=== PATIENT | female | born 1990 ===

== ENCOUNTER → 2022-11-19 | Outpatient (CLI) | payer BC | END | disposition home or self-care (01) | LOC: LAB 14:50 → LAB SHORT 14:50 | DX: O09.893 Supervision of other high risk pregnancies, third trimester (principal) | CPT/HCPCS: 87081; 87150 ==

== ENCOUNTER 2022-12-18 22:20 | Inpatient (IN) | payer BC ==
[~2022-12-18] VITALS: Ht 175.3 cm; Wt 120.9 kg
[2022-12-19 00:11] LABS: BASOPHILS ABSOLUTE AUTO 0.07 K/mm3 (0.00-0.23); BASOPHILS PERCENT AUTO 0 % (0-2); EOSINOPHILS ABSOLUTE AUTO 0.26 K/mm3 (0.00-0.68); EOSINOPHILS PERCENT AUTO 2 % (0-6); Hematocrit 36.6 % (33.0-51.0); Hemoglobin 12.7 g/dL (11.5-16.0); IMMATURE GRAN ABSOLUTE AUTO 0.09 K/mm3 (0.00-0.10); IMMATURE GRAN PERCENT AUTO 1 % (0-1); LYMPHOCYTES PERCENT AUTO 8 % (21-46); MONOCYTES ABSOLUTE AUTO 1.01 K/mm3 (0.16-1.47); MONOCYTES PERCENT AUTO 6 % (4-13); Mean Corpuscular HGB 30.1 pg (26.0-34.0); Mean Corpuscular HGB Conc 34.7 g/dL (31.5-36.5); Mean Corpuscular Volume 87 fL (80-100); Mean Platelet Volume 11.2 fL (9.1-12.4); NEUTROPHILS ABSOLUTE AUTO 14.73 K/mm3 (1.96-9.15); NEUTROPHILS PERCENT AUTO 84 % (41-73); Platelet Count 195 K/mm3 (150-400); RDW Coefficient Variation 13.6 % (11.7-14.2); RDW Standard Deviation 42.7 fL (35.1-46.3); Red Blood Cell Count 4.22 M/mm3 (3.80-5.20); White Blood Cell Count 17.56 K/mm3 (4.00-11.30)
[2022-12-19 09:13] LABS: Albumin, Blood 2.8 g/dL (3.4-5.0); Albumin/Globulin Ratio 0.8 (0.8-1.8); Bilirubin, Total 0.5 mg/dL (0.1-1.0); Bun/Creatinine Ratio 18.7 (12.0-20.0); Calcium, Blood 9.1 mg/dL (8.5-10.1); Creatinine, Blood 0.59 mg/dL (0.40-1.00); Globulin, Blood 3.7 g/dL (2.2-4.0); Potassium, Blood 3.8 mmol/L (3.5-5.5); Total Protein, Blood 6.5 g/dL (6.4-8.2)
[2022-12-19 10:51] LABS: Protein/Creat Ratio, Ur Random 0.3
--- NOTE | 2022-12-21 13:51 | NUR ---
REVIEWED DISCHARGE TEACHING PACKET, QUESTIONS ANSWERED, PT VERBALIZED UNDERSTANDING INSTRUCTIONS AND FOLLOW UP APPOINTMENTS AT [facility] AND [facility], MINIMAL ASSISTANCE NEEDED WITH BREAST FEEDING LATCH TO LEFT BREAST, FLAT NIPPLE USING NIPPLE SHIELD, FEW DROPS FORMULA GIVEN TO ENCOURAGE SUCKING GOOD LATCH, SENDING HOME FEW BOTTLES OF FORMULA AND FEEDING SYRINGE WITH MOM
--- NOTE | 2022-12-21 14:06 | NUR ---
MATCHED NB BANDS FOR DISCHARGE
--- NOTE | 2022-12-21 15:01 | NUR ---
DISCHARGE TO HOME WITH NB
== END 2022-12-21 14:55 | disposition home or self-care (01) | DRG 807 ==
LOC: OBS 22:20 → BC 22:21 → OBS 23:13 → BC 23:16
PROVIDERS: Obstetrics & Gynecology; ADMIT Family Medicine
PROC: 10E0XZZ Delivery of Products of Conception, External Approach (ICD-10-PCS; principal; 2022-12-20)
PROC: 3E0R3BZ Introduction of Anesthetic Agent into Spinal Canal, Percutaneous Approach (ICD-10-PCS; 2022-12-20)
PROC: 00HU33Z Insertion of Infusion Device into Spinal Canal, Percutaneous Approach (ICD-10-PCS; 2022-12-20)
PROC: 0KQM0ZZ Repair Perineum Muscle, Open Approach (ICD-10-PCS; 2022-12-20)
PROC: 10H07YZ Insertion of Other Device into Products of Conception, Via Natural or Artificial Opening (ICD-10-PCS; 2022-12-20)
DX: O48.0 Post-term pregnancy (principal); Z37.0 Single live birth; O36.63X0 Maternal care for excessive fetal growth, third trimester, not applicable or unspecified; O99.214 Obesity complicating childbirth; O69.1XX0 Labor and delivery complicated by cord around neck, with compression, not applicable or unspecified; O14.04 Mild to moderate pre-eclampsia, complicating childbirth; O76 Abnormality in fetal heart rate and rhythm complicating labor and delivery; O42.02 Full-term premature rupture of membranes, onset of labor within 24 hours of rupture; O70.1 Second degree perineal laceration during delivery; Z3A.40 40 weeks gestation of pregnancy; Z98.890 Other specified postprocedural states
CPT/HCPCS: 36415; 51702; 59025; 80053; 81003; 82570; 84156; 85025; 86850; 86900; 86901; A9270; J0690; J1885; J2210; J2405; J2590; J7120

== ENCOUNTER → 2023-02-05 | Outpatient (CLI) | payer BC ==
[2023-02-06 15:12] LABS: HPV 16 Negative (Negative); HPV 18 Negative (Negative); HPV OTHER HR TYPES Negative (Negative)
== END | disposition home or self-care (01) ==
LOC: LAB SHORT 16:43 → LAB 16:43
PROVIDERS: Obstetrics & Gynecology
DX: Z01.419 Encounter for gynecological examination (general) (routine) without abnormal findings (principal)
CPT/HCPCS: 87624; G0145

== ENCOUNTER → 2024-06-16 | Outpatient (CLI) | payer BC | END | disposition home or self-care (01) | LOC: LAB SHORT 12:25 → LAB 12:25 | DX: O09.893 Supervision of other high risk pregnancies, third trimester (principal) | CPT/HCPCS: 87081; 87150 ==

== ENCOUNTER 2024-07-02 14:11 | Inpatient (IN) | payer BC ==
[~2024-07-02] VITALS: Ht 175.3 cm; Wt 126.4 kg
[2024-07-02] VITALS (8 sets, daily range): BP systolic 123–144; BP diastolic 68–88
[~2024-07-02 14:11] MED LIST: Misoprostol 200 MCG Tab PO ONE
[2024-07-02] MEDS ORDERED: PRENATAL TABLE1 EAC2 PO (14:31)
[2024-07-02] MEDS ORDERED: Misoprostol 200 MCG Tab BC PRN (14:50)
[2024-07-02] MEDS ORDERED: Oxytocin 10 Unit / ML Vial IM PRN (14:50)
[2024-07-02] MEDS ORDERED: Lactated Ringer's 1,000 ML IV PRN ×2 (14:50→22:45)
[2024-07-02] MEDS ORDERED: Ondansetron HCl 2 MG / ML 2ML Vial IV PRN (14:50)
[2024-07-02] MEDS ORDERED: Acetaminophen 500 MG Tab PO PRN (14:50)
[2024-07-02] MEDS ORDERED: FentaNYL Citrate 50 MCG/ML 2 ML Injection IV PRN (14:50)
[2024-07-02] MEDS ORDERED: Misoprostol 200 MCG Tab PR PRN (14:50)
[2024-07-02] MEDS ORDERED: Methylergonovine Maleate 0.2MG / ML 1ML Amp IM PRN (14:50)
[2024-07-02] MEDS ORDERED: OXYTOCIN/RINGER'S LACTATE 500 ML IV PRN (14:50)
[2024-07-02] MEDS ORDERED: Carboprost Tromethamine 250 MCG/ML 1ML Amp IM PRN (14:50)
[2024-07-02] MEDS ORDERED: Calcium Carbonate 500 MG Tab Chew PO SCH (14:55)
[2024-07-02] MEDS ORDERED: ePHEDrine Sulfate 50 MG/ML 1ML Injection XX PRN (14:55)
[2024-07-02] MEDS ORDERED: Lactated Ringer's 1,000 ML IV SCH ×2 (14:55)
[2024-07-02] MEDS ORDERED: FentaNYL 2mcg/ml-Bup 0.1% Epd 250 ML EPI PRN (14:55)
[2024-07-02] MEDS ORDERED: Lactated Ringer's 1,000 ML IV ONE (14:59)
[2024-07-02 15:01] LABS: BASOPHILS ABSOLUTE AUTO 0.06 K/mm3 (0.00-0.23); BASOPHILS PERCENT AUTO 0 % (0-2); EOSINOPHILS ABSOLUTE AUTO 0.25 K/mm3 (0.00-0.68); EOSINOPHILS PERCENT AUTO 2 % (0-6); Hematocrit 38.1 % (33.0-51.0); Hemoglobin 13.3 g/dL (11.5-16.0); IMMATURE GRAN ABSOLUTE AUTO 0.09 K/mm3 (0.00-0.10); IMMATURE GRAN PERCENT AUTO 1 % (0-1); LYMPHOCYTES ABSOLUTE AUTO 1.48 K/mm3 (0.84-5.20); LYMPHOCYTES PERCENT AUTO 9 % (21-46); MONOCYTES ABSOLUTE AUTO 0.61 K/mm3 (0.16-1.47); MONOCYTES PERCENT AUTO 4 % (4-13); Mean Corpuscular HGB 29.3 pg (26.0-34.0); Mean Corpuscular HGB Conc 34.9 g/dL (31.5-36.5); Mean Corpuscular Volume 84 fL (80-100); Mean Platelet Volume 11.2 fL (9.1-12.4); NEUTROPHILS ABSOLUTE AUTO 13.56 K/mm3 (1.96-9.15); NEUTROPHILS PERCENT AUTO 84 % (41-73); Platelet Count 212 K/mm3 (150-400); RDW Coefficient Variation 13.5 % (11.7-14.2); RDW Standard Deviation 41.1 fL (35.1-46.3); Red Blood Cell Count 4.54 M/mm3 (3.80-5.20); White Blood Cell Count 16.05 K/mm3 (4.00-11.30)
[2024-07-02] MEDS ORDERED: Tranexamic Acid 100 ML IV SCH (15:05)
[2024-07-02] MEDS ORDERED: Calcium Carbonate 500 MG Tab Chew PO PRN (16:45)
[2024-07-02] MEDS ORDERED: OXYTOCIN/RINGER'S LACTATE 500 ML IV SCH (22:45)
[2024-07-03] VITALS (30 sets, daily range): BP systolic 113–149; BP diastolic 56–100
[2024-07-03] MEDS ORDERED: FentaNYL Citrate 50 MCG/ML 2 ML Injection ONE (00:19)
[2024-07-03] MEDS ORDERED: Lactated Ringer's 1,000 ML IV SCH ×3 (04:30→14:55)
[2024-07-03] MEDS ORDERED: Acetaminophen 500 MG Tab PO PRN (04:30)
[2024-07-03] MEDS ORDERED: Witch Hazel/Glycerin PADS TOP PRN (04:30)
[2024-07-03] MEDS ORDERED: Ibuprofen 400 MG Tab PO PRN (04:30)
[2024-07-03] MEDS ORDERED: FLU VACC TS2024-25(6MOS UP)/PF 45 MCG/0.5 ML SYRINGE IM SCH (04:30)
[2024-07-03] MEDS ORDERED: Docusate Sodium 100 MG Cap PO PRN (04:30)
[2024-07-03] MEDS ORDERED: Misoprostol 200 MCG Tab PR PRN (04:35)
[2024-07-03] MEDS ORDERED: Benzocaine Topical Anesthetic Spray 60GM TOP PRN (04:35)
[2024-07-03] MEDS ORDERED: Carboprost Tromethamine 250 MCG/ML 1ML Amp IM PRN (04:35)
[2024-07-03] MEDS ORDERED: Methylergonovine Maleate 0.2MG / ML 1ML Amp IM PRN (04:35)
[2024-07-03] MEDS ORDERED: OXYTOCIN/RINGER'S LACTATE 500 ML IV SCH (04:35)
[2024-07-03] MEDS ORDERED: Lanolin Cream TOP PRN (04:35)
[2024-07-03] MEDS ORDERED: Ketorolac Tromethamine 30mg Vial IV PRN (04:35)
[2024-07-03] MEDS ORDERED: IBUP800 PO (08:15)
--- NOTE | 2024-07-03 08:57 | NUR ---
ASSUMED CARE. MOTHER REMAINS IN NURSERY WITH . NO COMPLAINTS AT THIS TIME.
[2024-07-03] MEDS ORDERED: Prenatal Vit/FE Fumarate/FA 1 Tab PO SCH (09:00)
[2024-07-03 13:41] LABS: Hemoglobin 11.9 g/dL (11.5-16.0); Mean Corpuscular HGB Conc 33.1 g/dL (31.5-36.5); Mean Corpuscular Volume 88 fL (80-100); Mean Platelet Volume 11.1 fL (9.1-12.4); Platelet Count 167 K/mm3 (150-400); RDW Coefficient Variation 13.3 % (11.7-14.2); White Blood Cell Count 16.76 K/mm3 (4.00-11.30)
[2024-07-04 03:34] VITALS: BP 125/94
[2024-07-04 08:36] VITALS: BP 125/75
[2024-07-04 12:47] VITALS: BP 122/84
--- NOTE | 2024-07-04 13:16 | NUR ---
agree with assessment ortiz rnc
== END 2024-07-04 13:40 | disposition home or self-care (01) | DRG 807 ==
LOC: OBS 14:11 → BC 14:16 → OBS 14:37 → BC 14:38
PROVIDERS: ADMIT Obstetrics & Gynecology
PROC: 10E0XZZ Delivery of Products of Conception, External Approach (ICD-10-PCS; principal; 2024-07-03)
PROC: 3E0R3BZ Introduction of Anesthetic Agent into Spinal Canal, Percutaneous Approach (ICD-10-PCS; 2024-07-03)
PROC: 00HU03Z Insertion of Infusion Device into Spinal Canal, Open Approach (ICD-10-PCS; 2024-07-03)
PROC: 0HQ9XZZ Repair Perineum Skin, External Approach (ICD-10-PCS; 2024-07-03)
DX: O42.02 Full-term premature rupture of membranes, onset of labor within 24 hours of rupture (principal); Z37.0 Single live birth; Z3A.39 39 weeks gestation of pregnancy; O99.214 Obesity complicating childbirth; Z90.89 Acquired absence of other organs; Z79.899 Other long term (current) drug therapy; O70.0 First degree perineal laceration during delivery; O69.81X0 Labor and delivery complicated by cord around neck, without compression, not applicable or unspecified
CPT/HCPCS: 36415; 51702; 59025; 85025; 85027; 86850; 86900; 86901; 86923; 99214; A9270; J1885; J2590; J7120